=== PATIENT | female | born 1985 | race Caucasian/White ===

== ENCOUNTER 2017-02-01 14:04 | Observation (INO) | payer BC ==
[2017-02-01] MEDS ORDERED: FAMOTIDINE 20 MG/2 ML VIAL IV STA (14:33)
[2017-02-01] MEDS ORDERED: ONDANSETRON 4 MG/2 ML VIAL IVP STA (14:33)
[2017-02-01] MEDS ORDERED: SODIUM CHLORIDE 0.9% 1,000 ML IV ONE (14:33)
--- NOTE | 2017-02-01 14:37 | ED ---
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 Patient reports she's had 4 days of nausea vomiting and diarrhea. The discomfort mainly from the epigastric to the right upper quadrant. She did have some chills. Denies fever. Denies any blood in the vomit or stool. She thinks she may have had food poisoning. - Related Data Home Medications Medication Instructions Recorded Confirmed Biotin 5 mg PO DAILY 02/01/17 02/01/17 Allergies Allergy/AdvReac Type Severity Reaction Status Date / Time Penicillins Allergy Rash/Hives Verified 02/01/17 14:31 Review of Systems ROS Statement: Those systems with pertinent positive or pertinent negative responses have been documented in the HPI. Review of systems no headache at this time though she had a yesterday. No sore throat no stiff neck no chest pain or shortness of breath she has discomfort in the epigastric region to the right upper quadrant. Nausea and vomiting up until today. 18 she eats she becomes nauseated. No neuro deficits complained of. All systems are reviewed. No significant past medical problems. She denies any surgeries. Family history nothing significant. Patient has ALLERGIES to penicillin mother reports she had a rash when she was a child. Nonsmoker nondrinker. ROS Other: All systems not noted in ROS Statement are negative. Past Medical History Past Medical History: No Reported History History of Any Multi-Drug Resistant Organisms: None Reported Past Surgical History: No Surgical Hx Reported Additional Past Surgical History / Comment(s): pt states hx of skin bx that was "pre-cancerous" Past Anesthesia/Blood Transfusion Reactions: No Reported Reaction Past Psychological History: No Psychological Hx Reported Smoking Status: Never smoker Past Alcohol Use History: None Reported Past Drug Use History: None Reported - Past Family History Mother Family Medical History: No Reported History Father Family Medical History: Hypertension General Exam - General Exam Comments Initial Comments: General: The patient is awake and alert, he with a chief complaint of nausea vomiting and diarrhea. Epigastric to right upper quadrant discomfort. Unable to eat anything because it causes vomiting. Vital signs shows temperature 98.8 pulse 108 respiratory rate 20 pulse ox on percent room air blood pressure 133/77 Eye: Pupils are equal, round and reactive to light, extra-ocular movements are intact ; there is normal conjunctiva bilaterally. No signs of icterus. Ears, nose, mouth and throat: There are moist mucous membranes and no oral lesions. Neck: The neck is supple, there is no tenderness, no anterior cervical lymphadenopathy , thyroid not enlarged. Cardiovascular: Tachycardic heart rate, 108.. No murmur, rub or gallop is appreciated. Respiratory: Lungs are clear to auscultation, respirations are non-labored, breath sounds are equal. No wheezes, stridor, rales, or rhonchi. Gastrointestinal: Soft, non-distended, minimally tender abdomen without masses or organomegaly noted. Mild discomfort over the epigastric region negative Phillips sign. There is no rebound or guarding present. No CVA tenderness. Bowel sounds are unremarkable. Back: There is no tenderness to palpation in the midline. There is no obvious deformity. No rashes noted. No pain with kidney punch his. Musculoskeletal: Normal ROM, no tenderness, Neurological: No complaint of any neuro deficits. The patient has not been on any antibiotics lately. [place] in the house. Skin: Denies any skin rashes. Limitations: no limitations Course Vital Signs 02/01/17 02/01/17 14:09 17:37 Temperature 98.8 F 101.2 F H Pulse Rate 108 H 103 H Respiratory 20 16 Rate Blood Pressure 133/77 108/71 O2 Sat by Pulse 100 99 Oximetry Medical Decision Making - Medical Decision Making Medical decision making; patient's white count is 5.6 hemoglobin 13.9 hematocrit of 37.8. Potassium is 4.8 with a BUN of 8 creatinine 0.7 GFR greater than 60. Glucose 96. Total bilirubin is elevated at 2.1. Other liver enzymes within normal limits patient. Amylase lipase within normal limits urine test negative. Acute hepatitis panel negative. X-ray of the abdomen was done and reviewed by radiologist his impression is nonobstructive bowel gas pattern. Hepatomegaly versus Suhail's lobe, normal variant #3 positive gas in the upper abdomen likely relates to enlarged hepatic contour. As read by Dr. Owens She still has left lower back area pain. She will have an ultrasound done of the gallbladder area and liver rule out gallbladder issues. Also to evaluate the liver. She will also have acute hepatitis panel done. she has not had anything to eat since last night While in emergency room the patient spiked a fever of 101. For which she received IV over medical. We did discuss the symptoms signs possibility of a Shigella salmonella food poisoning etc. the patient has not been to give us a stool sample yet she will be admitted started on Levaquin. Because of her low back pain and also discussed possibility of kidney infection i.e. pyelonephritis. Her vital signs remained stable otherwise patient be started on Levaquin. Case discussed with the chun registered nurse taking calls for Dr. Batista. - Lab Data Result diagrams: 02/01/17 14:42 02/01/17 14:42 Lab Results 02/01/17 02/01/17 02/01/17 Range/Units 14:30 14:30 14:30 WBC (3.8-10.6) k/uL RBC (3.80-5.40) m/uL Hgb (11.4-16.0) gm/dL Hct (34.0-46.0) % MCV (80.0-100.0) fL MCH (25.0-35.0) pg MCHC (31.0-37.0) g/dL RDW (11.5-15.5) % Plt Count (150-450) k/uL Neutrophils % % Lymphocytes % % Monocytes % % Eosinophils % % Basophils % % Neutrophils # (1.3-7.7) k/uL Lymphocytes # (1.0-4.8) k/uL Monocytes # (0-1.0) k/uL Eosinophils # (0-0.7) k/uL Basophils # (0-0.2) k/uL Hyperchromasia Poikilocytosis Sodium (137-145) mmol/L Potassium (3.5-5.1) mmol/L Chloride (98-107) mmol/L Carbon Dioxide (22-30) mmol/L Anion Gap mmol/L BUN (7-17) mg/dL Creatinine (0.52-1.04) mg/dL Est GFR (MDRD) Af Amer (>60 ml/min/1.73 sqM) Est GFR (MDRD) Non-Af (>60 ml/min/1.73 sqM) Glucose (74-99) mg/dL Calcium (8.4-10.2) mg/dL Total Bilirubin (0.2-1.3) mg/dL AST (14-36) U/L ALT (9-52) U/L Alkaline Phosphatase (38-126) U/L Total Protein (6.3-8.2) g/dL Albumin (3.5-5.0) g/dL Amylase (30-110) U/L Lipase (23-300) U/L Urine Color Yellow Urine Appearance Cloudy H (Clear) Urine pH 6.5 (5.0-8.0) Ur Specific [place] 1.012 (1.001-1.035) Urine Protein Negative (Negative) Urine Glucose (UA) Negative (Negative) Urine Ketones Negative (Negative) Urine Blood Negative (Negative) Urine Nitrite Negative (Negative) Urine Bilirubin Negative (Negative) Urine Urobilinogen <2.0 (<2.0) mg/dL Ur Leukocyte Esterase Negative (Negative) Urine WBC 1 (0-5) /hpf Ur Squamous Epith Cells 8 H (0-4) /hpf Urine Bacteria Rare H (None) /hpf Urine Mucus Rare H (None) /hpf Urine HCG, Qual Not Detected (Not Detectd) Hepatitis A IgM Ab NEGATIVE Hep Bs Antigen Negative Hep B Core IgM Ab NEGATIVE Hep C IgG Ab Negative (Negative) 02/01/17 02/01/17 Range/Units 14:42 14:42 WBC 5.6 (3.8-10.6) k/uL RBC 4.50 (3.80-5.40) m/uL Hgb 13.9 (11.4-16.0) gm/dL Hct 37.8 (34.0-46.0) % MCV 83.9 (80.0-100.0) fL MCH 30.9 (25.0-35.0) pg MCHC 36.8 (31.0-37.0) g/dL RDW 15.0 (11.5-15.5) % Plt Count 193 (150-450) k/uL Neutrophils % 68 % Lymphocytes % 16 % Monocytes % 10 % Eosinophils % 1 % Basophils % 1 % Neutrophils # 3.8 (1.3-7.7) k/uL Lymphocytes # 0.9 L (1.0-4.8) k/uL Monocytes # 0.6 (0-1.0) k/uL Eosinophils # 0.1 (0-0.7) k/uL Basophils # 0.0 (0-0.2) k/uL Hyperchromasia Marked Poikilocytosis Slight Sodium 139 (137-145) mmol/L Potassium 4.8 (3.5-5.1) mmol/L Chloride 105 (98-107) mmol/L Carbon Dioxide 23 (22-30) mmol/L Anion Gap 11 mmol/L BUN 8 (7-17) mg/dL Creatinine 0.70 (0.52-1.04) mg/dL Est GFR (MDRD) Af Amer >60 (>60 ml/min/1.73 sqM) Est GFR (MDRD) Non-Af >60 (>60 ml/min/1.73 sqM) Glucose 94 (74-99) mg/dL Calcium 9.4 (8.4-10.2) mg/dL Total Bilirubin 2.1 H (0.2-1.3) mg/dL AST 29 (14-36) U/L ALT 28 (9-52) U/L Alkaline Phosphatase 73 (38-126) U/L Total Protein 6.7 (6.3-8.2) g/dL Albumin 4.2 (3.5-5.0) g/dL Amylase 46 (30-110) U/L Lipase 71 (23-300) U/L Urine Color Urine Appearance (Clear) Urine pH (5.0-8.0) Ur Specific [place] (1.001-1.035) Urine Protein (Negative) Urine Glucose (UA) (Negative) Urine Ketones (Negative) Urine Blood (Negative) Urine Nitrite (Negative) Urine Bilirubin (Negative) Urine Urobilinogen (<2.0) mg/dL Ur Leukocyte Esterase (Negative) Urine WBC (0-5) /hpf Ur Squamous Epith Cells (0-4) /hpf Urine Bacteria (None) /hpf Urine Mucus (None) /hpf Urine HCG, Qual (Not Detectd) Hepatitis A IgM Ab Hep Bs Antigen Hep B Core IgM Ab Hep C IgG Ab (Negative) Disposition Clinical Impression: Infectious diarrhea in adult patient Disposition: ADMITTED IP TO THIS HOSP Condition: Fair Referrals: Max Lewis DO [Primary Care Provider] - 1-2 days
[2017-02-01 14:41] LABS: Appearance,Urine Cloudy (Clear); Bacteria,Urine Rare /hpf; Bilirubin,Urine Negative (Negative); Glucose,Urine (UA) Negative (Negative); Ketones,Urine Negative (Negative); Leukocyte Esterase,Urine Negative (Negative); Mucus,Urine Rare /hpf; Nitrite,Urine Negative (Negative); PH, Urine 6.5 (5.0-8.0); Particle Count 2979; Protein,Urine Negative (Negative); Specific Gravity,Urine 1.012 (1.001-1.035); Squamous Epithelial Cell,Urine 8 /hpf (0-4); UA Billing (MACRO vs. MICRO) MICRO; Urobilinogen,Urine <2.0 mg/dL (<2.0); WBC,Urine 1 /hpf (0-5)
[2017-02-01] MEDS ORDERED: SODIUM CHLORIDE 0.9% 500 ML IV STA (14:47)
[2017-02-01 14:52] LABS: Basophils % (A) 1 %; CH 32.4; CHCM 38.9; Eosinophils # (A) 0.1 k/uL (0-0.7); Eosinophils % (A) 1 %; HCT 37.8 % (34.0-46.0); HDW 3.64; HGB 13.9 gm/dL (11.4-16.0); Hyperchromasia Marked; Luc # (Auto) 0.22; Luc % (Auto) 4; Lymphocytes # (A) 0.9 k/uL (1.0-4.8); Lymphocytes % (A) 16 %; MCH 30.9 pg (25.0-35.0); MCHC 36.8 g/dL (31.0-37.0); MCV 83.9 fL (80.0-100.0); Mean Platelet Volume 7.1; Monocytes # (A) 0.6 k/uL (0-1.0); Monocytes % (A) 10 %; Neutrophils # (A) 3.8 k/uL (1.3-7.7); Neutrophils % (A) 68 %; Poikilocytosis Slight; WBC 5.6 k/uL (3.8-10.6); WBC (Perox) 5.59
[2017-02-01 15:02] LABS: ALT 28 U/L (9-52); AST 29 U/L (14-36); Alkaline Phosphatase 73 U/L (38-126); Amylase 46 U/L (30-110); Anion Gap 11 mmol/L; Blood Urea Nitrogen 8 mg/dL (7-17); Calcium 9.4 mg/dL (8.4-10.2); Carbon Dioxide 23 mmol/L (22-30); Chloride 105 mmol/L (98-107); Glucose 94 mg/dL (74-99); Non-African American GFR(MDRD) >60 (>60 ml/min/1.73 sqM); Potassium 4.8 mmol/L (3.5-5.1); Sodium 139 mmol/L (137-145); Total Bilirubin 2.1 mg/dL (0.2-1.3); Total Protein 6.7 g/dL (6.3-8.2)
--- NOTE | 2017-02-01 15:13 | XR ---
EXAMINATION TYPE: XR abdomen 2V DATE OF EXAM: 02/01/2017 3:03 PM CLINICAL HISTORY: Right upper quadrant abdominal pain TECHNIQUE: Single supine KUB image of the abdomen is obtained. COMPARISON: None. FINDINGS: Scattered gas is seen in non-distended small bowel loops. Paucity of bowel gas is present w ithin the upper abdomen. Gas and fecal material is seen in non-distended colon. The liver appears clari ngated extending to the right iliac crest on upright and supine images which may relate to Suhail's l obe or hepatomegaly. The lung bases are clear and the osseous structures are intact. IMPRESSION: 1. Nonobstructive bowel gas pattern. 2. Hepatomegaly versus Suhail's lobe, normal variant. 3. Paucity of bowel gas in the upper abdomen likely relates to enlarged hepatic contour.
[2017-02-01] MEDS: SODIUM CHLORIDE 0.9% 1,000 ML IV SCH (15:23)
[2017-02-01 16:38] LABS: Hepatitis B Surface Ag Index 0.14
[2017-02-01 16:43] LABS: Hepatitis B Core IgM Index 0.03
[2017-02-01 16:55] LABS: Hepatitis C Virus IgG Ab Negative (Negative); Hepatitis C Virus IgG Index 0.02
--- NOTE | 2017-02-01 17:15 | US ---
EXAMINATION TYPE: US abdomen limited DATE OF EXAM: 02/01/2017 COMPARISON: NONE CLINICAL HISTORY: RUQ pain, R/O gallbladder , liver path. RUQ pain/pressure, right flank pain, diarrh ea, nausea EXAM MEASUREMENTS: Liver Length: 17.7 cm Gallbladder Wall: 0.2 cm CBD: 0.3 cm Right Kidney: 10.0 x 4.1 x 5.0 cm Pancreas: appears wnl Liver: upper limits of normal Gallbladder: no evidence of stones Evidence for sonographic Phillips's sign: no CBD: wnl Right Kidney: no evidence of hydronephrosis or mass IMPRESSION: No sonographic evidence of cholelithiasis, cholecystitis, right nephrolithiasis or hydron ephrosis of the right kidney.
[2017-02-01] MEDS ORDERED: ACETAMINOPHEN IV (For NPO) 1,000 MG in EMPTY BAG 1 BAG IVPB STA (17:50)
[2017-02-01] MEDS ORDERED: LEVOFLOXACIN 500MG-D5W PMX 500 MG in DEXTROSE/WATER 1 100ML.BAG IVPB STA (18:17)
[2017-02-01] MEDS ORDERED: NALOXONE 0.4 MG/ML 1 ML VIAL IV PRN (18:18)
[2017-02-01] MEDS ORDERED: ONDANSETRON 4 MG/2 ML VIAL IVP PRN (18:18)
[2017-02-01] MEDS ORDERED: METOCLOPRAMIDE 5 MG/ML 2 ML VIAL IVP PRN (18:23)
[2017-02-01 19:48] VITALS: BMI 21.2
[2017-02-02] MEDS: ACETAMINOPHEN TAB 325 MG TAB PO PRN ×2 (00:57→10:23)
[2017-02-02] MEDS: SODIUM CHLORIDE 0.9% 1,000 ML IV SCH ×5 (01:06→11:42)
[2017-02-02 07:28] LABS: Basophils % (A) 1 %; CH 32.1; Eosinophils % (A) 1 %; HCT 32.8 % (34.0-46.0); HDW 3.83; HGB 11.7 gm/dL (11.4-16.0); Hyperchromasia Moderate; Luc # (Auto) 0.12; Luc % (Auto) 4; Lymphocytes # (A) 0.7 k/uL (1.0-4.8); Lymphocytes % (A) 23 %; MCH 30.4 pg (25.0-35.0); MCHC 35.8 g/dL (31.0-37.0); Mean Platelet Volume 7.5; Monocytes # (A) 0.3 k/uL (0-1.0); Monocytes % (A) 10 %; Neutrophils # (A) 1.8 k/uL (1.3-7.7); Neutrophils % (A) 61 %; Poikilocytosis Slight; RBC 3.86 m/uL (3.80-5.40); RDW 15.1 % (11.5-15.5); WBC 2.9 k/uL (3.8-10.6)
[2017-02-02 07:48] LABS: ALT 25 U/L (9-52); AST 24 U/L (14-36); Alkaline Phosphatase 51 U/L (38-126); Anion Gap 5 mmol/L; Blood Urea Nitrogen 4 mg/dL (7-17); Calcium 8.4 mg/dL (8.4-10.2); Carbon Dioxide 24 mmol/L (22-30); Chloride 110 mmol/L (98-107); Glucose 79 mg/dL (74-99); Non-African American GFR(MDRD) >60 (>60 ml/min/1.73 sqM); Potassium 4.5 mmol/L (3.5-5.1); Sodium 139 mmol/L (137-145); Total Bilirubin 1.4 mg/dL (0.2-1.3); Total Protein 5.1 g/dL (6.3-8.2)
[2017-02-02] MEDS ORDERED: NON-FORMULARY DRUG (Biotin [Biotin] 5 MG) PO SCH (09:00)
[2017-02-02] MEDS ORDERED: PANTOPRAZOLE 40 MG/10 ML VIAL IV SCH (09:00)
[2017-02-02] MEDS ORDERED: LOPERAMIDE 2 MG CAP PO PRN (13:20)
[2017-02-02 17:15] VITALS: BP 125/75; PULSE 98; RESP 20; TEMP 99
[2017-02-02] MEDS ORDERED: LEVOFLOXACIN 500MG-D5W PMX 500 MG in DEXTROSE/WATER 1 100ML.BAG IVPB SCH (18:00)
[2017-02-03] MEDS ORDERED: PANTOPRAZOLE 40 MG TABLET PO SCH (07:30)
--- NOTE | 2017-02-03 09:03 | HP ---
HISTORY AND PHYSICAL AND DISCHARGE SUMMARY The chief complaints are multiple episodes of diarrhea and back pain. HISTORY OF PRESENT ILLNESS: This 31-year-old woman with a past medical history of no significant medical issues being followed by Dr. Lewis in the outpatient setting was complaining of diarrhea since yesterday. Patient had multiple episodes of diarrhea. Patient has some nausea also. Patient had diffuse abdominal pain and back pain. Patient came to [facility] and admitted for further evaluation and treatment. Patient apparently ate some tacos according to her which was eaten by nobody. Nobody else was sick around her also. PAST MEDICAL HISTORY: No significant history. Medications are home medications are Biotin. ALLERGIES: PENICILLIN. FAMILY HISTORY: No history of heart disease or strokes in the family. SOCIAL HISTORY: No history of smoking. No history of alcohol. REVIEW OF SYSTEMS: ENT: No diminished hearing or diminished vision. CARDIOVASCULAR SYSTEM: No angina or palpitation. RESPIRATORY SYSTEM: No cough. GI: As mentioned earlier. : No dysuria. NERVOUS SYSTEM: No numbness or weakness. ALLERGIES/IMMUNOLOGY: No history of asthma. MUSCULOSKELETAL: As mentioned earlier. HEMATOLOGY/ONCOLOGY: No history of anemia. ENDOCRINE: No history of diabetes or hypothyroidism. CONSTITUTIONAL: As mentioned. DERMATOLOGY: Negative. RHEUMATOLOGY: Negative. PSYCHIATRY: As mentioned earlier. PHYSICAL EXAMINATION: The patient is alert and oriented x3. Pulse 99, blood pressure 117/74, respirations 16, temperature 99.7, pulse ox 100% on room air. HEENT: Conjunctivae normal. NECK: No jugular venous distention. CARDIOVASCULAR: S1 and S2 muffled. No S3, no S4. RESPIRATORY: Breath sounds diminished at the bases. No rhonchi. No crackles. ABDOMEN: Soft, mild diffuse discomfort. No guarding, no rigidity. No mass palpable. LEGS: No edema, no swelling. NERVOUS SYSTEM: Higher function as mentioned. Moves all 4 limbs. No focal motor or sensory deficit. LYMPHATICS: No lymphadenopathy of the neck, axillae or groin. SKIN: No ulcers, rashes or bleeding. Labs are WBC 2.9, otherwise,total bilirubin is 2.1 and 1.4. UA noted. C. difficile is negative and hepatitis panel is also negative. ASSESSMENT: 1. Acute diarrhea, this is possibly viral syndrome. 2. Mild leukopenia. 3. Increased total bilirubin, improving. RECOMMENDATIONS AND DISCUSSION: In this 31-year-old woman who presented with multiple complex medical issues, we will monitor the patient closely. Otherwise , the patient has improved significantly. C. difficile is negative. Hepatitis panel is also negative. I would Imodium p.r.n. Patient is extremely keen on going home at this time; so the patient will be discharged with plans for repeat labs with Dr. Lewis, CBC and CMP and monitor liver function closely and lactose free diet. Continue to monitor. Otherwise stable, but overall prognosis guarded. Further recommendations to follow. Discussed with the patient. Patient understands and agrees. Please refer to discharge summary for the list of medications. MTDD
[2017-02-03] MEDS ORDERED: LEVOFLOXACIN 500 MG TAB PO SCH (18:00)
== END 2017-02-02 17:29 | disposition home or self-care (01) ==
LOC: EC 14:04 → 6PED 18:18
PROVIDERS: ADMIT Internal Medicine; ATTEND Internal Medicine
DX: R19.7 Diarrhea, unspecified (principal); D72.819 Decreased white blood cell count, unspecified; R10.13 Epigastric pain; M54.5 Low back pain; R94.5 Abnormal results of liver function studies; R10.11 Right upper quadrant pain; R11.2 Nausea with vomiting, unspecified; R50.9 Fever, unspecified; Z88.0 Allergy status to penicillin; Z82.49 Family history of ischemic heart disease and other diseases of the circulatory system
CPT/HCPCS: 99285; 96361 ×5; 96374; 96375 ×3; 36415; 80053 ×2; 80074; 82150; 83690; 85025 ×2; 81001; 81025; 87040; 87324; 87086; 87045; 87046; 74020; 76705; G0378 ×2; J2405; J1956; J0131; C9113